=== PATIENT | male | born 1970 | race Caucasian/White ===

== ENCOUNTER 2025-01-01 06:10 | Emergency (ER) | payer BC ==
[~2025-01-01] VITALS: Ht 180.3 cm; Wt 82.6 kg
[2025-01-01 06:21] VITALS: BP 138/100; PULSE 65; RESP 16; TEMP 97.3; O2SAT 97
--- NOTE | 2025-01-01 06:45 | Physician Documentation ---
History of Present Illness General Chief Complaint: Elbow pain Stated Complaint: FLUID IN ELBOW Time Seen by MD: 06:30 History of Present Illness Initial Comments The patient is a 54-year-old male who accidentally impacted his left olecranon bursa two months ago and since that time it has been swollen. It has not been red or painful. He has no fever or chills. He comes here asking whether it should be aspirated. Review of systems: Constitutional: Denies chills, fatigue, fever, weight gain or weight loss. HEENT: Denies hearing loss, sinus pressure or visual changes. Respiratory: Denies cough, shortness of breath or wheezing. Cardiovascular: Denies chest pain, pain while walking (claudication), edema or palpitations. Gastrointestinal: Denies abdominal pain, blood in stool, constipation, diarrhea, heartburn, loss of appetite, nausea or vomiting. Genitourinary: Denies painful urination (dysuria), excessive amount of urine (polyuria) or urinary frequency. Metabolic/Endocrine: Denies cold intolerance, heat intolerance, excessive thirst (polydipsia) or excessive hunger (polyphagia). Neurological: Denies dizziness, extremity numbness, extremity weakness, headaches, seizures or tremors. Psychiatric: Denies anxiety or depression. Integumentary: Denies breast discharge, breast lump, hives, mole change(s), rash or skin lesion. Musculoskeletal: Swelling over left olecranon bursa. Hematologic: Denies easily bleeding, easily bruises, lymphedema or issues with blood clots. Immunologic: Denies food allergies or seasonal allergies. PHYSICAL EXAMINATION: Vitals and nursing note reviewed. Constitutional: General: Patient is awake, alert, oriented x 4 in no acute distress and well appearing. Speech is clear and lucid. Appearance: Normal appearance. Patient is not ill-appearing, toxic-appearing or diaphoretic. HENT: Head: Normocephalic and atraumatic. Mouth/Throat: Mouth: Mucous membranes are moist. Pharynx: Oropharynx is clear. Eyes: General: No scleral icterus. Extraocular Movements: Extraocular movements intact. Pupils: Pupils are equal, round, and reactive to light. Neck: Supple, no Kernig or Brudzinski sign. Cardiovascular: Rate and Rhythm: Normal rate and regular rhythm. Heart sounds: No murmur heard. Pulmonary: Effort: No respiratory distress. Breath sounds: No wheezing, rhonchi or rales. Abdominal: General: There is no distension. Palpations: There is no fluid wave, hepatomegaly or mass. Tenderness: There is no abdominal tenderness. There is no guarding. Musculoskeletal: General: 5 cm diameter swelling over olecranon bursa on left side. No redness, no tenderness. Contents feel jelly like. Skin: Coloration: Skin is not jaundiced. Findings: No erythema or rash. Neurological: Mental Status: Patient is alert. MEDICAL DECISION MAKING: I explained to the patient that putting a needle in the area would make it prone to infection and that the contents did not feel liquid so the likelihood of aspirating the contents would be relatively low. The patient has an appointment with an orthopedic surgeon in two weeks for his right AC joint and I advised him to review this swelling at that time. He is agreeable with that. Medication Reconciliation Allergies: Coded Allergies: No Known Allergies (Unverified , 01/01/25) Physical Exam Physical Exam Vital Signs: Temperature: 97.3, Source: Oral, Heart Rate: 65, Respiratory Rate: 16, BP: 138/100, Pulse Oximetry: 97, Weight: 82.600 Oxygen Flow Rate: 0 Progress Results/Orders Results/Orders Vital Signs 01/01/25 06:21 Temp 97.3 Pulse 65 Resp 16 B/P (MAP) 138/100 Pulse Ox 97 O2 Flow Rate 0 Departure Disposition: 01 HOME / SELF CARE / HOMELESS Impression: Primary Impression: Effusion of olecranon bursa Condition: Stable Additional Instructions: I would advise you to show this problem to your orthopedic surgeon when you see him in two weeks. In the meantime, return here for worsening symptoms or new/unusual symptoms. Referrals: NO PRIMARY CARE PROVIDER (PCP) Education Educated: Patient Educated regarding: diagnosis, need for follow up Signature Scribe Signature: . Attestation: ALESHA SHAH MD Jan 01, 2025 06:44
== END 2025-01-01 07:15 | disposition home or self-care (01) ==
LOC: ER 06:11
DX: M25.422 Effusion, left elbow (principal)
CPT/HCPCS: 99282